=== PATIENT | male | born 1980 | race Caucasian/White ===

== ENCOUNTER 2016-06-08 16:22 | Emergency (ER) | payer BC ==
[~2016-06-08] VITALS: Ht 175.3 cm; Wt 81.8 kg
[~2016-06-08 16:22] MED LIST: ENDOCET 5-3251 EACH PO
[2016-06-08 17:10] LABS: HEMATOCRIT 48.5 % (38.0-50.0); MCH 29.2 PG (29.0-34.0); MCHC 35.1 G/DL (30.0-36.0); MCV 83.2 FL (86-99); MEAN PLAT.VOLUME 9.5 uM^3 (9.0-12.4); PLATELET COUNT 323 K/uL (156-360); RBC DIS.WIDTH-CV 12.7 % (11.8-14.6); RBC DIS.WIDTH-SD 38.1 % (39-53); RED BLOOD COUNT 5.83 M/uL (4.00-5.50); WHITE BLOOD COUNT 12.4 K/uL (4.1-10.2)
[2016-06-08 17:23] LABS: CHLORIDE 102 mEq/L (99-109); POTASSIUM 4.6 mEq/L (3.7-5.4); SODIUM 140 mEq/L (136-147)
[2016-06-08 17:25] LABS: GLUCOSE 105 mg/dL (70-99)
[2016-06-08 17:26] LABS: ANION GAP 13 MEQ/L (2-14)
[2016-06-08 17:27] LABS: TOTAL BILIRUBIN 0.5 mg/dL (0.0-1.0)
[2016-06-08 17:28] LABS: ALKALINE PHOSPHATASE 58 IU/L (3-129)
[2016-06-08 17:29] LABS: GFR ESTIMATE (CALCULATED) > 59 mL/min/
[2016-06-08 17:30] LABS: UREA NITROGEN (BUN) 11 mg/dL (9-23)
[2016-06-08 19:53] LABS: ADD MIUA? NO; BILIRUBIN NEGATIVE; BLOOD NEGATIVE; COLOR YELLOW ((YELLOW)); GLUCOSE (STRIP) NEGATIVE; KETONES NEGATIVE; LEUKOCYTES NEGATIVE; NITRITE NEGATIVE; PROTEIN (STRIP) 30; SPECIFIC GRAVITY 1.014 (1.000-1.030); UCUL ADDED? NO; UROBILINOGEN 0.2 MG/DL (0.2-1.0)
[2016-06-08] MEDS ORDERED: KEFLEX500 MG PO (22:40)
[2016-06-08 23:02] VITALS: BP 130/80
== END 2016-06-08 23:02 | disposition home or self-care (01) ==
LOC: EME 16:22
DX: R10.9 Unspecified abdominal pain (principal); L02.811 Cutaneous abscess of head [any part, except face]; Z72.0 Tobacco use; Z98.1 Arthrodesis status
CPT/HCPCS: 74176; 80053; 81003; 85027; 99281; 99285; J1885; J2405; J7030